=== PATIENT | female | born 1960 | race Caucasian/White ===

== ENCOUNTER 2016-08-29 16:31 | Emergency (ER) | payer OTHER ==
[~2016-08-29] VITALS: Ht 157.4 cm; Wt 71.7 kg
[~2016-08-29 16:31] MED LIST: ALLERCLEAR10 MG PO; AMOXICILLIN500 MG PO; BENTYL10 MG PO; BLACK COHOSH; MEDROL DOSEPAK4 MG PO; MOTRIN600 MG PO; NORTRIPTYLINE H10 MG PO; PREMPRO 0.3 MG-1 TA1; PRILOSEC20 M1 PO; ULTRAM50 MG PO; VIBRAMYCIN100 MG PO; ZUPLENZ4 M1 PO
[2016-08-29] MEDS ORDERED: BENZONATATE100 M1 PO (16:41)
[2016-08-29] MEDS ORDERED: AVPAK AZITHROM250 M1 PO (16:41)
[2016-08-29 17:11] LABS: BASO % 0.3 % (0.0-1.0); EOS # 0.1 10*3/uL (0.0-0.4); EOS % 0.8 % (1.0-4.0); HEMATOCRIT 44.2 % (37.0-47.0); HEMOGLOBIN 15.1 g/dl (12.0-16.0); IG # 0.1 10*3/uL (0.0-0.1); LYMPH # 2.7 10*3/uL (1.3-4.4); LYMPH % 17.3 % (27.0-41.0); MEAN CELL VOLUME 93.6 fl (81.0-99.0); MEAN CORPUSCULAR HGB CONC 34.2 g/dl (33.0-37.0); MEAN PLATELET VOLUME 9.7 fl (9.6-12.3); MONO # 1.1 10*3/uL (0.1-1.0); MONO % 6.8 % (3.0-9.0); NEUT # 11.5 10*3/uL (2.3-7.9); NEUT % 74.3 % (47.0-73.0); PLATELET COUNT AUTOMATED 205 10*3/uL (130-400); RED BLOOD COUNT 4.72 10*6/uL (4.10-5.10); RED CELL DISTRI WIDTH 13.1 % (0-14.5); WHITE BLOOD COUNT 15.4 10*3/uL (4.8-10.8)
[2016-08-29 17:29] LABS: ALBUMIN 3.6 gm/dl (3.1-4.5); ALKALINE PHOSPHATASE 104 U/L (45-117); BILIRUBIN, TOTAL 0.2 mg/dl (0.2-1.0); BUN 10 mg/dl (7-24); C-REACTIVE PROTEIN 3.45 MG/DL (0-0.3); CARBON DIOXIDE 26 mmol/L (21-32); CHLORIDE 103 mmol/L (98-107); EST GLOM FILT AFRICAN AMERICAN > 60 ml/min; GLUCOSE 92 mg/dL (65-99); SGOT/AST 22 IU/L (3-35); SGPT/ALT 54 U/L (12-78); SODIUM 139 mmol/L (136-145); TOTAL PROTEIN 7.2 gm/dL (6.4-8.2)
[2016-08-29 17:37] LABS: BILIRUBIN NEGATIVE (NEGATIVE); BLOOD 2+ (NEGATIVE); CLARITY CLEAR (CLEAR); COLOR YELLOW (YELLOW); GLUCOSE NEGATIVE (NEGATIVE); KETONE NEGATIVE (NEGATIVE); LEUKO ESTERASE NEGATIVE (NEGATIVE); NITRITE NEGATIVE (NEGATIVE); PH 5.5 (5.0-9.0); PROTEIN NEGATIVE (NEGATIVE); SPECIFIC GRAVITY <= 1.005 (1.005-1.030); UROBILINOGEN 0.2 E.U./dl (0.2-1.0)
[2016-08-29 17:43] LABS: BACTERIA 1+; URINE REFLEX COMMENT YES (NO); WBC 0-2 wbc/hpf (0-5)
[2016-08-29] MEDS ORDERED: PEPCID20 MG PO (20:26)
[2016-08-29] MEDS ORDERED: BENTYL10 MG PO (20:26)
== END 2016-08-29 20:35 | disposition home or self-care (01) ==
LOC: ED 16:31
PROVIDERS: Physician Assistant
DX: R10.13 Epigastric pain (principal); F17.200 Nicotine dependence, unspecified, uncomplicated; Z88.1 Allergy status to other antibiotic agents; Z88.6 Allergy status to analgesic agent

== ENCOUNTER → 2016-09-13 | Outpatient (CLI) | payer OTHER ==
[~2016-09-13] MED LIST changes: +AVPAK AZITHROM250 M1 PO; +BENZONATATE100 M1 PO; +PEPCID20 MG PO
== END | disposition home or self-care (01) ==
LOC: CARD 09:12
DX: I70.90 Unspecified atherosclerosis (principal); R07.9 Chest pain, unspecified

== ENCOUNTER → 2016-09-26 | Outpatient (CLI) | payer OTHER ==
[2016-09-26 14:07] LABS: ALBUMIN 4.1 gm/dl (3.1-4.5); ALKALINE PHOSPHATASE 109 U/L (45-117); BILIRUBIN, DIRECT < 0.1 mg/dL (0.0-0.2); BILIRUBIN, TOTAL 0.3 mg/dl (0.2-1.0); IRON 96 ug/dL (50-170); IRON SATURATION 26 %; SGOT/AST 27 IU/L (3-35); SGPT/ALT 62 U/L (12-78); TOTAL PROTEIN 7.6 gm/dL (6.4-8.2); UIBC 260 ug/dL (110-365)
[2016-09-27 06:20] LABS: HEPATITIS C VIRUS ANTIBODY 0.1 (0.0-0.9)
[2016-09-27 13:06] LABS: EPSTEIN-BARR VCA IGG AB >600.0 U/mL (0.0-17.9); EPSTEIN-BARR VCA IGM AB <36.0 U/mL (0.0-35.9)
== END | disposition home or self-care (01) ==
LOC: LAB 13:16
PROVIDERS: Nurse Practitioner
DX: E83.119 Hemochromatosis, unspecified (principal); R74.9 Abnormal serum enzyme level, unspecified; R10.9 Unspecified abdominal pain

== ENCOUNTER → 2016-12-19 | Outpatient (CLI) | payer OTHER | END | disposition home or self-care (01) | LOC: CARD 10-30 16:00 | DX: R06.09 Other forms of dyspnea (principal) ==

== ENCOUNTER 2017-06-17 00:59 | Inpatient (IN) | payer OTHER ==
[2017-06-17] VITALS (10 sets, daily range): BP systolic 94–121; BP diastolic 43–85
[~2017-06-17] VITALS: Ht 157.4 cm; Wt 73.7 kg
--- NOTE | ~2017-06-17 | PR ---
[place], [place] PROGRESS NOTE NAME: RETA DUNHAM [facility] #: [id number] UNIT #: [id number] ROOM: 505 DOCTOR: FABIOLA BRANCH MD,MORENITA BIRTHDATE: [birth year] DOS: 06/19/2017 PULMONARY ADDENDUM NOTE SUBJECTIVE: The patient has been noted comfortable. Denies symptoms of chest pain, coughing, or sputum expectoration. At the present time, respiratory symptoms, which has been noted previously resolved. The sore throat has been completely resolved. There were symptoms of chest pain reported. She was independently seen and examined with [id number] encounter. The with the history was personally confirmed. Physical exam was performed. All the labs available of the patient were personally reviewed. The assessment and management personally completed with patient as well as the recommendation. No changes in the treatment for today's visit personally. The note done by the medical lab technologist was approved. Auscultation of the chest was noted clear. PHYSICAL EXAMINATION: VITAL SIGNS: The patient was noted stable. Pulse ox saturation noted normal. LUNGS: Noted clear. ABDOMEN: Soft and moderate obesity. EXTREMITIES: Without any edema. PLAN OF TREATMENT: At this time, the patient could be considered for discharge home with a tapering dose of prednisone. The patient has oral antibiotics and short-acting bronchodilators. Outpatient followup for the patient was suggested post-discharge for reassessment of current ground glass appearance in the lung and pulmonary abnormalities. Abstinence tobacco use was recommended. The patient could resume her usual duties on Saturday. MORENITA HICKS MD CM:PNTRANS [id number] MORENITA BRANCH MD 06/19/17 2356 interface
--- NOTE | ~2017-06-17 | PR ---
[place], [place] PROGRESS NOTE NAME: RETA DUNHAM UNIT #: [id number] ROOM: 505 DOCTOR: LEANA WOLFGANG MIGUEL BIRTHDATE: [birth year] DOS: 06/19/2017 SUBJECTIVE: The patient was seen and examined at bedside. She is sitting upright with no new complaints. The patient reports that her coughing, weakness, fatigue and shortness of breath have all improved. The patient denies any chest pain or hemoptysis. OBJECTIVE: VITAL SIGNS: Temperature 97.9, pulse 91, respirations 20, blood pressure 113/65, pulse ox 97% on room air. GENERAL APPEARANCE: The patient is alert and oriented times 3, no acute distress. HEENT: No change from yesterday. NECK: Supple, nontender. CARDIOVASCULAR: S1 and S2 are audible, regular rate and rhythm. LUNGS: Decreased breath sounds in all lung jones. No wheezing or rales. ABDOMEN: Soft, nontender. EXTREMITIES: Without acute edema. NEUROLOGIC: No focal deficits. LABORATORY DATA: No labs were ordered overnight. Sputum culture was positive for many Gram-positive cocci ____ clusters and moderate Gram-negative bacilli with moderate white cells and moderate epithelials. Influenza was negative and blood cultures were negative for preliminary report. Strep was negative for group A strep. IMPRESSION: 1. Multifocal ground glass opacities in the left lung likely secondary to atypical pneumonia versus viral pneumonia. 2. Acute on chronic nicotine dependence. PLAN: The patient is cleared for discharge, recommend antibiotics, prednisone and bronchodilators upon discharge with a [address] Hicks for a repeat CT scan. The patient understood the plan and agreed that she felt well enough to go home. WOLFGANG DUEÑAS DO [place], [place] PROGRESS NOTE NAME: RETA DUNHAM UNIT #: [id number] ROOM: 505 DOCTOR: WOLFGANG DUEÑAS DO BIRTHDATE: [birth year] MORENITA HICKS MD CM:LOUISA [id number] WOLFGANG DUEÑAS DO 06/20/17 0427 interface
--- NOTE | ~2017-06-17 | CON ---
[place], [place] REPORT OF CONSULTATION NAME: RETA DUNHAM [facility] #: [id number] UNIT #: [id number] ROOM: 505 DOCTOR: FABIOLA BRANCH MD,MORENITA BIRTHDATE: [birth year] DOS: 06/17/2017 PULMONARY CONSULTATION, EVALUATION AND MANAGEMENT CONSULTATION REQUESTED BY: Dr. Hilario Marks REASON FOR CONSULTATION: To assess the patient for multifocal pneumonia. HISTORY OF PRESENT ILLNESS: A 57-year-old white female patient who has been admitted to the hospital. The patient was brought to the hospital in a private car. She was watching a football game and drank about 5 beers. After that, she started experiencing symptoms of sore throat and bilateral ear ache. These symptoms have been noted to be gradually worsening. She later on developed increased shortness of breath at nighttime and could not lay flat. The patient presented to the hospital for further assessment. She did not report any symptoms of coughing or chest pain. Denies symptoms of hemoptysis. The patient denies any symptoms of wheezing with that. She has been admitted to the hospital and underwent CT of the chest as well that did rule out pulmonary embolism. Multifocal pneumonia was described in the report and the patient is currently admitted to the hospital, and is being treated for that. The patient stated that she has felt better and had improvement in the symptoms partially since admission. The shortness of breath has been noted to be decreased. REVIEW OF SYSTEMS: CONSTITUTIONAL SYMPTOMS: Denies symptoms of fever or chills prior to the current symptoms. Denies any abnormal weight loss history. EYES: Denies any burning, redness, dryness, or pain. EARS, NOSE, AND THROAT SYMPTOMS: No sore throat, hoarseness, otalgia. At the present time, noted with some ear ache at the time of the admission and the sore throat is resolved at the present time of assessment. CARDIOVASCULAR: Denies anginal pain, edema, or pain of the lower extremity. GASTROINTESTINAL: Denies dysphagia, nausea, vomiting, diarrhea, abdominal pain, hematemesis, melena, hematochezia, or dysphagia. GENITOURINARY: No dysuria, suprapubic pain, hematuria, or burning on urination. MUSCULOSKELETAL: No acute joint pain, redness, or tenderness. SKIN: Denies any lesions or rashes. CENTRAL NERVOUS SYSTEM: No dizziness, headache, diplopia, or syncopal episodes. Remaining systems were reviewed with the patient, they were noted all negative. PAST MEDICAL HISTORY: Reported for: 1. Allergic rhinitis. 2. Gastroesophageal reflux. 3. History of nicotine dependence. PAST SURGICAL HISTORY: Reported as: 1. Sinus surgery. 2. Tubal ligation. SOCIAL HISTORY: The patient stated she is , has 4 children. Smoking [place], [place] RE[facility]ATION [facility] [id number] UNIT #: [id number] ROOM: [facility] DOCTOR: MORENITA JONES MD BIRTHDATE: [birth year] noted since a teenager 1.5 pack of cigarettes per day, active use. Denies any illicit drug use. The alcohol use was noted as occasional in the form of the beer. FAMILY HISTORY: The patient's father at the age of 60 years from complication of diabetes mellitus. Mother at the age of 73 years from complication related to the heart problems. HOME MEDICATIONS: Noted with regular use of loratadine, Singulair, omeprazole, and ranitidine. DRUG ALLERGY HISTORY: NOTED ALLERGY TO: 1. CODEINE. 2. AMOXICILLIN. PHYSICAL EXAMINATION: GENERAL: This is a 57-year-old female who has been noted currently awake and alert at the time of the assessment, without any acute distress, but appeared to be somewhat ill looking. Height of 5 feet 2 inches, weight 162 pounds, BMI 29.7. VITAL SIGNS: Normal temperature recorded, respiratory 20-18, heart rate 72-96, blood pressure 106/47-120/52. The pulse oxygen saturation of the patient was noted as 96%. HEENT: Shows head was atraumatic. Eyes nonicterus. NECK: Supple. Oral mucosa was moist. CARDIOVASCULAR: S1, S2 is audible. LUNGS: Noted with [id number] decreased breath sounds without any wheezing or crackles at the present time. ABDOMEN: Soft, mild obesity. Bowel sounds present without any tenderness. EXTREMITIES: No edema, clubbing, or cyanosis. SKIN: Visible area of skin, no lesions or rashes. MUSCULOSKELETAL: No deformities. CENTRAL NERVOUS SYSTEM: Cranial nerves 2-12 intact. No focal deficit. LABORATORY DATA: BMP on admission, glucose 122, BUN and creatinine were normal. Alcohol level noted at 141 on this admission. CBC on 06/17/2017, WBC count 18.9, hemoglobin and hematocrit normal, platelet count was normal. Troponin on the patient was noted this morning as normal. CBC repeated again on the patient this morning after hospitalization, WBC count 12.2, hematocrit, hematocrit, and platelet count were all noted normal. BMP repeated again this morning after admission, glucose 132, BUN and creatinine was normal. Remaining electrolytes grossly normal. Influenza A and B, nasal washing antigens were negative. IMAGING STUDIES: Chest x-ray of the patient does not show any acute infiltration or other abnormalities. It was a single view chest x-ray. The patient had a CTA of the chest that was reviewed. It does not show any evidence of pulmonary embolism. The mediastinal window that was done was also reviewed for this patient and it does not show any abnormal lymphadenopathy. The parenchymal window for this patient was reviewed that shows patchy area of ground-glass opacity with infiltration that was noted involving the left upper [place], [place] REPORT OF CONSULTATION NAME: RETA DUNHAM [place] UNIT #: [id number] ROOM: [facility] DOCTOR: SIRIA JONES MDM BIRTHDATE: [birth year] lung bronchovascular bundle and a small area of infiltration with ground-glass opacity noted in the pleural base and the right upper lobe as well and another patchy infiltration was noted in the right upper lobe as well. Another small patchy ground-glass opacity was noted subpleurally in the left upper lung. Lower lung were noted free of any infiltration. There was no evidence of gross centrilobular emphysema changes. IMPRESSION: 1. The patient has been currently admitted to the hospital with symptoms of shortness of breath that occurred at home. Possible consideration with the current differential diagnosis as typical or atypical pneumonia including viral in origin. 2. History of chronic heavy nicotine dependence in the patient was also known. 3. Mild obesity of the patient as well. 4. History of allergic rhinitis as well. 5. Leukocytosis related to current acute infection. PLAN OF MANAGEMENT: At this time, the patient seemed to be responding to the treatment even with the use of the current antibiotic with one dose administered of Levaquin. That should be continued. She does not have any cough that could be sent for sputum culture. Symptomatic monitoring of the patient will be continued. Obtain urine for Legionella antigen and strep pneumo antigen as well. Additional treatment changes to be made for this patient based on progression of illness. Bronchodilators would be beneficial to help mobilize any secretions. Nicotine replacement patch to overcome any nicotine withdrawal as well. Usual care, other plan of management and therapies. Additional treatment changes might be considered in the patient based on the progression of the illness. Respiratory viral panel for the patient was also ordered. The influenza A and B, nasal washing antigens were already noted as negative. MORENITA HICKS MD CM:CONSTR:REPORT OF CONSULTATION [id number] 06/17/17 2344 interface
--- NOTE | ~2017-06-17 | PR ---
[place], [place] PROGRESS NOTE NAME: RETA DUNHAM [facility] #: [id number] UNIT #: [id number] ROOM: 505 DOCTOR: FABIOLA BRANCH MD,MORENITA BIRTHDATE: [birth year] DOS: 06/18/2017 SUBJECTIVE: She has been noted comfortable at this time, reported reduction in symptoms of coughing or weakness and fatigue. Denies symptoms of chest pain. Denies symptoms of hemoptysis. The patient was seen today and noted sitting on the side of the bed at the present time. OBJECTIVE: VITAL SIGNS: For the patient which has been recorded shows normal temperature, respiratory rate 20, heart rate 67, blood pressure 105/68. The pulse oxygen saturation on room air 97% saturation. HEENT: Examination shows no acute change. NECK: Supple. CARDIOVASCULAR: S1, S2 audible. LUNGS: Noted with mild decreased breath sounds bilaterally. There were no wheezing or crackles. ABDOMEN: Soft, nontender. EXTREMITIES: Without any acute edema. LABORATORY DATA: Influenza A and B nasal washing noted as negative. IMPRESSION: The patient who had been currently admitted to the hospital weakness and fatigue with a sore throat, also noted multifocal ground glass opacity mostly in the left lung. Atypical pneumonia, viral pneumonia have been considered. Acute on chronic nicotine dependence. PLAN OF MANAGEMENT: Await for the respiratory viral panel results. Continue current antibiotics, bronchodilators. Continuation of the previous medication for the allergic rhinitis. Continue nicotine replacement patches as well. Usual care. Other supportive plan of management as previously. MORENITA HICKS MD CM:PNTRANS [id number] MORENITA BRANCH MD 06/18/17 2311 interface
[~2017-06-17 00:59] MED LIST changes: +OMEPRAZOLE40 MG PO; -PRILOSEC20 M1 PO
[2017-06-17 01:48] LABS: BASO # 0.1 10*3/uL (0.0-0.1); BASO % 0.3 % (0.0-1.0); EOS # 0.1 10*3/uL (0.0-0.4); EOS % 0.7 % (1.0-4.0); HEMATOCRIT 43.8 % (37.0-47.0); HEMOGLOBIN 15.3 g/dl (12.0-16.0); LYMPH # 2.9 10*3/uL (1.3-4.4); LYMPH % 15.2 % (27.0-41.0); MEAN CELL VOLUME 94.6 fl (81.0-99.0); MEAN CORPUSCULAR HGB CONC 34.9 g/dl (33.0-37.0); MEAN PLATELET VOLUME 9.5 fl (9.6-12.3); MONO # 0.8 10*3/uL (0.1-1.0); MONO % 4.4 % (3.0-9.0); NEUT # 14.9 10*3/uL (2.3-7.9); PLATELET COUNT AUTOMATED 247 10*3/uL (130-400); RED BLOOD COUNT 4.63 10*6/uL (4.10-5.10); RED CELL DISTRI WIDTH 12.8 % (0-14.5); WHITE BLOOD COUNT 18.9 10*3/uL (4.8-10.8)
[2017-06-17 01:59] LABS: BUN 9 mg/dl (7-24); CHLORIDE 106 mmol/L (98-107); CREATININE 0.77 mg/dL (0.55-1.02); POTASSIUM 3.5 mmol/L (3.5-5.1); SODIUM 142 mmol/L (136-145)
[2017-06-17 09:26] LABS: BASO # 0.1 10*3/uL (0.0-0.1); BASO % 0.4 % (0.0-1.0); EOS # 0.1 10*3/uL (0.0-0.4); EOS % 0.7 % (1.0-4.0); HEMATOCRIT 41.8 % (37.0-47.0); HEMOGLOBIN 14.3 g/dl (12.0-16.0); MEAN CELL VOLUME 94.1 fl (81.0-99.0); MEAN CORPUSCULAR HGB 32.2 pg (27.0-31.0); MEAN CORPUSCULAR HGB CONC 34.2 g/dl (33.0-37.0); MEAN PLATELET VOLUME 9.8 fl (9.6-12.3); MONO # 0.7 10*3/uL (0.1-1.0); MONO % 5.7 % (3.0-9.0); NEUT # 9.3 10*3/uL (2.3-7.9); NEUT % 76.6 % (47.0-73.0); PLATELET COUNT AUTOMATED 245 10*3/uL (130-400); RED BLOOD COUNT 4.44 10*6/uL (4.10-5.10); RED CELL DISTRI WIDTH 12.9 % (0-14.5); WHITE BLOOD COUNT 12.2 10*3/uL (4.8-10.8)
[2017-06-17 09:49] LABS: BUN 7 mg/dl (7-24); CHLORIDE 108 mmol/L (98-107); CREATININE 0.72 mg/dL (0.55-1.02); SODIUM 141 mmol/L (136-145)
[2017-06-17 09:59] LABS: FREE T4 1.05 ng/dl (0.76-1.46)
[2017-06-17 11:07] LABS: VITAMIN D, 25-HYDROXY 15.7 ng/mL (30-100)
[2017-06-17] MEDS ORDERED: SINGULAIR10 M1 PO (11:11)
[2017-06-17] MEDS ORDERED: RANITIDINE HCL300 M2 PO (11:11)
[2017-06-17] MEDS ORDERED: CLARITIN10 MG PO (11:23)
[2017-06-18] VITALS: BP 117/69
[2017-06-18 04:00] VITALS: BP 120/54
[2017-06-18 07:38] LABS: CHOLESTEROL 108 mg/dL (<200); HDL CHOLESTEROL 72 mg/dl (40-60); LDL CHOLESTEROL 31 mg/dL (9-159); TRIGLYCERIDES 25 mg/dl (<150); VLDL CHOLESTEROL 5 mg/dL (6-40)
[2017-06-18 08:00] VITALS: BP 105/68
[2017-06-18 12:00] VITALS: BP 113/44
[2017-06-18 16:00] VITALS: BP 119/55
[2017-06-18 20:00] VITALS: BP 123/54
[2017-06-19] VITALS: BP 117/71
[2017-06-19 08:00] VITALS: BP 136/78
[2017-06-19 12:00] VITALS: BP 113/65
[2017-06-19 12:07] LABS: LEGIONELLA URINARY ANTIGEN Negative (Negative)
[2017-06-19] MEDS ORDERED: LEVAQUIN750 M1 PO (13:05)
[2017-06-19] MEDS ORDERED: PROAIR HFA8.5 GM INH (13:05)
[2017-06-19] MEDS ORDERED: PREDNISONE10 MG PO (13:37)
[2017-06-19 19:05] LABS: ADENOVIRUS Negative (Negative); INFLUENZA A Negative (Negative); INFLUENZA B Negative (Negative); METAPNEUMOVIRUS Negative (Negative); PARAINFLUENZA 1 Negative (Negative); PARAINFLUENZA 2 Negative (Negative); PARAINFLUENZA 3 Negative (Negative); RHINOVIRUS Negative (Negative); RSV A Negative (Negative); RSV B Negative (Negative)
== END 2017-06-19 13:33 | disposition home or self-care (01) | DRG 871 ==
LOC: ED 00:59 → 5E 04:45
PROVIDERS: Emergency Medicine Emergency Medical Services; Internal Medicine; Internal Medicine Critical Care Medicine
DX: A41.9 Sepsis, unspecified organism (principal); J15.6 Pneumonia due to other Gram-negative bacteria; E83.51 Hypocalcemia; J98.4 Other disorders of lung; K21.9 Gastro-esophageal reflux disease without esophagitis; E56.9 Vitamin deficiency, unspecified; J02.9 Acute pharyngitis, unspecified; E66.9 Obesity, unspecified; R73.9 Hyperglycemia, unspecified; Z98.51 Tubal ligation status; Z82.49 Family history of ischemic heart disease and other diseases of the circulatory system; Z72.0 Tobacco use; Z83.3 Family history of diabetes mellitus; Z88.6 Allergy status to analgesic agent; Z88.8 Allergy status to other drugs, medicaments and biological substances; Z79.899 Other long term (current) drug therapy; Z71.6 Tobacco abuse counseling; Z68.29 Body mass index [BMI] 29.0-29.9, adult

== ENCOUNTER → 2017-09-23 | Outpatient (CLI) | payer OTHER ==
[~2017-09-23] MED LIST changes: +CLARITIN10 MG PO; +LEVAQUIN750 M1 PO; +PREDNISONE10 MG PO; +PROAIR HFA8.5 GM INH; +RANITIDINE HCL300 M2 PO; +SINGULAIR10 M1 PO
== END | disposition home or self-care (01) ==
LOC: RAD 09:23
DX: M25.512 Pain in left shoulder (principal)

== ENCOUNTER → 2020-04-21 | Outpatient (CLI) | payer OTHER | END | disposition home or self-care (01) | LOC: RAD 10:14 | PROVIDERS: ATTEND Nurse Practitioner Family | DX: M47.816 Spondylosis without myelopathy or radiculopathy, lumbar region (principal); M47.814 Spondylosis without myelopathy or radiculopathy, thoracic region; M25.78 Osteophyte, vertebrae; M46.06 Spinal enthesopathy, lumbar region; R06.02 Shortness of breath; Z91.81 History of falling ==

== ENCOUNTER → 2022-08-07 | Outpatient (CLI) | payer OTHER ==
[2022-08-07 08:11] LABS: BASO % 0.5 % (0.0-1.0); EOS # 0.1 10*3/uL (0.0-0.4); EOS % 1.6 % (1.0-4.0); HEMATOCRIT 49.8 % (37.0-47.0); LYMPH % 24.7 % (27.0-41.0); MEAN CELL VOLUME 97.3 fl (81.0-99.0); MEAN CORPUSCULAR HGB 32.6 pg (27.0-31.0); MEAN CORPUSCULAR HGB CONC 33.5 g/dl (33.0-37.0); MEAN PLATELET VOLUME 9.4 fl (9.6-12.3); MONO # 0.7 10*3/uL (0.1-1.0); MONO % 8.3 % (3.0-9.0); NEUT # 5.1 10*3/uL (2.3-7.9); NEUT % 64.3 % (47.0-73.0); PLATELET COUNT AUTOMATED 272 10*3/uL (130-400); RED BLOOD COUNT 5.12 10*6/uL (4.10-5.10); RED CELL DISTRI WIDTH 12.7 % (0-14.5)
[2022-08-07 08:14] LABS: ALKALINE PHOSPHATASE 100 U/L (46-116); CHLORIDE 97 mmol/L (98-107); CHOLESTEROL 105 mg/dL (<200); LDL CHOLESTEROL 49 mg/dL (9-159); POTASSIUM 4.9 mmol/L (3.4-5.1); SGPT/ALT 137 U/L (10-49); TOTAL PROTEIN 7.5 gm/dL (6.0-8.0); TRIGLYCERIDES 38 mg/dl (<150)
[2022-08-07 08:23] LABS: BUN < 5 mg/dl (9-23)
== END | disposition home or self-care (01) ==
LOC: LAB 07:25
PROVIDERS: ATTEND Nurse Practitioner Family
DX: E78.2 Mixed hyperlipidemia (principal); E55.9 Vitamin D deficiency, unspecified; R79.89 Other specified abnormal findings of blood chemistry; D72.829 Elevated white blood cell count, unspecified

== ENCOUNTER → 2022-09-24 | Outpatient (CLI) | payer OTHER | END | disposition home or self-care (01) | LOC: RAD 01:35 | PROVIDERS: ATTEND Internal Medicine | DX: Z13.820 Encounter for screening for osteoporosis (principal); E83.119 Hemochromatosis, unspecified; R79.89 Other specified abnormal findings of blood chemistry; Z78.0 Asymptomatic menopausal state ==

== ENCOUNTER → 2022-10-09 | Outpatient (CLI) | payer OTHER | LOC: CARD 00:16 | PROVIDERS: ATTEND Internal Medicine | DX: E83.119 Hemochromatosis, unspecified (principal); R79.89 Other specified abnormal findings of blood chemistry ==

== ENCOUNTER → 2022-10-22 | Outpatient (CLI) | payer OTHER | END | disposition home or self-care (01) | LOC: US 02:06 | PROVIDERS: ATTEND Internal Medicine | DX: E83.119 Hemochromatosis, unspecified (principal); R79.89 Other specified abnormal findings of blood chemistry; K76.0 Fatty (change of) liver, not elsewhere classified ==

== ENCOUNTER 2022-12-10 07:57 | Emergency (ER) | payer OTHER ==
[~2022-12-10] VITALS: Ht 157.4 cm; Wt 78.0 kg
[2022-12-10 08:40] LABS: BILIRUBIN Negative (Negative); BLOOD Negative (Negative); CLARITY Clear (Clear); COLOR Yellow (Yellow); GLUCOSE Negative (Negative); KETONE Negative (Negative); LEUKO ESTERASE Trace (Negative); NITRITE Negative (Negative); PH 6.5 (4.5-8.0); SPECIFIC GRAVITY <= 1.005 (1.001-1.030); UROBILINOGEN 0.2 E.U./dl (0.0-1.0)
[2022-12-10 08:52] LABS: BASO % 0.5 % (0.0-1.0); EOS # 0.1 10*3/uL (0.0-0.4); EOS % 1.6 % (1.0-4.0); LYMPH # 2.1 10*3/uL (1.3-4.4); LYMPH % 23.7 % (27.0-41.0); MEAN CELL VOLUME 93.3 fl (81.0-99.0); MEAN CORPUSCULAR HGB 31.8 pg (27.0-31.0); MEAN PLATELET VOLUME 9.1 fl (9.6-12.3); MONO # 0.6 10*3/uL (0.1-1.0); MONO % 6.9 % (3.0-9.0); NEUT # 5.8 10*3/uL (2.3-7.9); NEUT % 66.8 % (47.0-73.0); PLATELET COUNT AUTOMATED 307 10*3/uL (130-400); WHITE BLOOD COUNT 8.7 10*3/uL (4.8-10.8)
[2022-12-10 09:03] LABS: BACTERIA TRACE
[2022-12-10 09:24] LABS: ACT PARTIAL THROMBO TIME 29.5 SECONDS (20.0-32.1)
[2022-12-10 09:27] LABS: ALKALINE PHOSPHATASE 114 U/L (46-116); CHLORIDE 99 mmol/L (98-107); LIPASE 47 U/L (12-53); POTASSIUM 4.6 mmol/L (3.4-5.1); SGPT/ALT 123 U/L (10-49); TOTAL PROTEIN 7.3 gm/dL (6.0-8.0)
[2022-12-10 09:33] LABS: BUN < 5 mg/dl (9-23)
[2022-12-10] MEDS ORDERED: PERCOCET 5-3251 EACH PO (11:34)
[2022-12-10] MEDS ORDERED: PREDNISONE50 MG PO (11:34)
[2022-12-10] MEDS ORDERED: CYCLOBENZAPRINE10 MG PO (11:34)
== END 2022-12-10 11:47 | disposition home or self-care (01) ==
LOC: ED 07:57
PROVIDERS: Emergency Medicine
DX: S39.012A Strain of muscle, fascia and tendon of lower back, initial encounter (principal); F41.9 Anxiety disorder, unspecified; Z88.1 Allergy status to other antibiotic agents; Z88.5 Allergy status to narcotic agent; Z98.51 Tubal ligation status; Z98.890 Other specified postprocedural states; F17.200 Nicotine dependence, unspecified, uncomplicated; Z79.899 Other long term (current) drug therapy; X58.XXXA Exposure to other specified factors, initial encounter; Y93.89 Activity, other specified; Y92.89 Other specified places as the place of occurrence of the external cause; Y99.8 Other external cause status

== ENCOUNTER → 2023-01-03 | Outpatient (CLI) | payer OTHER ==
[~2023-01-03] MED LIST changes: +CYCLOBENZAPRINE10 MG PO; +PERCOCET 5-3251 EACH PO; +PREDNISONE50 MG PO
== END | disposition home or self-care (01) ==
LOC: RAD 12:39
PROVIDERS: ATTEND Nurse Practitioner Primary Care
DX: M89.8X1 Other specified disorders of bone, shoulder (principal); M47.817 Spondylosis without myelopathy or radiculopathy, lumbosacral region

== ENCOUNTER → 2023-06-05 | Outpatient (CLI) | payer OTHER | END | disposition home or self-care (01) | LOC: MRI 02:37 | PROVIDERS: ATTEND Nurse Practitioner Family | DX: M54.6 Pain in thoracic spine (principal) ==

== ENCOUNTER → 2023-06-06 | Outpatient (CLI) | payer OTHER | END | disposition home or self-care (01) | LOC: MRI 03:37 | PROVIDERS: ATTEND Nurse Practitioner Family | DX: M47.812 Spondylosis without myelopathy or radiculopathy, cervical region (principal); M54.42 Lumbago with sciatica, left side; M54.41 Lumbago with sciatica, right side; M48.02 Spinal stenosis, cervical region; M48.07 Spinal stenosis, lumbosacral region; M47.817 Spondylosis without myelopathy or radiculopathy, lumbosacral region; M51.37 Other intervertebral disc degeneration, lumbosacral region ==

== ENCOUNTER → 2023-08-28 | Outpatient (CLI) | payer OTHER | END | disposition home or self-care (01) | LOC: RAD 08:43 | PROVIDERS: ATTEND Student in an Organized Health Care Education/Training Program | DX: Z87.891 Personal history of nicotine dependence (principal) ==